=== PATIENT | male | born 1970 | race Two or more races ===

== ENCOUNTER 2017-08-14 10:26 | Inpatient (IN) | payer OTHER ==
[~2017-08-14] VITALS: Ht 193 cm; Wt 117.9 kg
[2017-08-14] MEDS ORDERED: CARDURA8 MG PO (11:41)
[2017-08-14] MEDS ORDERED: PROCARDIA XL90 MG PO (11:42)
[2017-08-14] MEDS ORDERED: AVALIDE 300-121 EACH PO (11:42)
[2017-08-14] MEDS ORDERED: SYNTHROID200 MCG PO (11:43)
[2017-08-14] MEDS ORDERED: CARVEDILOL6.25 MG PO (11:43)
[2017-08-14] MEDS ORDERED: ZANTAC300 MG PO (11:43)
[2017-08-14] MEDS ORDERED: ZOCOR40 MG PO (11:44)
[2017-08-22] MEDS ORDERED: DOCUSATE SODIU100 MG PO (12:54)
[2017-08-22] MEDS ORDERED: MS CONTIN30 M1 PO (12:54)
[2017-08-22] MEDS ORDERED: AMOX1TAB12 PO (12:54)
[2017-08-22] MEDS ORDERED: RESTORIL30 MG PO (12:54)
[2017-08-22] MEDS ORDERED: GABAPENTIN800 MG PO (12:54)
[2017-08-22] MEDS ORDERED: ACETAMINOPHEN-1 EAC2 PO (12:54)
== END 2017-08-22 13:34 | disposition home or self-care (01) | DRG 455 ==
LOC: SURH 08-21 04:30 → O/R 08-21 04:30 → SURH 08-21 10:00
PROVIDERS: Orthopaedic Surgery Orthopaedic Surgery of the Spine
PROC: 0SG0071 Fusion of Lumbar Vertebral Joint with Autologous Tissue Substitute, Posterior Approach, Posterior Column, Open Approach (ICD-10-PCS; 2017-08-21)
PROC: 0ST20ZZ Resection of Lumbar Vertebral Disc, Open Approach (ICD-10-PCS; 2017-08-21)
PROC: 0SG00AJ Fusion of Lumbar Vertebral Joint with Interbody Fusion Device, Posterior Approach, Anterior Column, Open Approach (ICD-10-PCS; 2017-08-21)
PROC: 07DS3ZZ Extraction of Vertebral Bone Marrow, Percutaneous Approach (ICD-10-PCS; 2017-08-21)
PROC: 0SG00A0 Fusion of Lumbar Vertebral Joint with Interbody Fusion Device, Anterior Approach, Anterior Column, Open Approach (ICD-10-PCS; principal; 2017-08-21 10:00)
DX: M47.26 Other spondylosis with radiculopathy, lumbar region (principal); M48.061 Spinal stenosis, lumbar region without neurogenic claudication; M51.16 Intervertebral disc disorders with radiculopathy, lumbar region; I10 Essential (primary) hypertension; E78.4 Other hyperlipidemia; E03.8 Other specified hypothyroidism; R73.03 Prediabetes

== ENCOUNTER 2020-10-11 07:40 | Day surgery (SDC) | payer OTHER ==
[~2020-10-11] VITALS: Ht 193 cm; Wt 90.7 kg
[~2020-10-11 07:40] MED LIST: ACETAMINOPHEN-1 EAC2 PO; AMOX1TAB12 PO; AVALIDE 300-121 EACH PO; CARDURA8 MG PO; CARVEDILOL6.25 MG PO; DOCUSATE SODIU100 MG PO; GABAPENTIN800 MG PO; MS CONTIN30 M1 PO; PROCARDIA XL90 MG PO; RESTORIL30 MG PO; SYNTHROID200 MCG PO; ZANTAC300 MG PO; ZOCOR40 MG PO
[2020-10-11] MEDS ORDERED: ZOLPIDEM TARTRA10 MG (15:04)
[2020-10-11] MEDS ORDERED: CLOTRIMAZOLE28 GM (15:04)
[2020-10-11] MEDS ORDERED: PANTOPRAZOLE SO40 MG (15:04)
[2020-10-11] MEDS ORDERED: ANTI-DIARRHEAL2 M1 (15:04)
[2020-10-11] MEDS ORDERED: CLONIDINE HCL0.1 MG (15:05)
[2020-10-11] MEDS ORDERED: MEDROLPACK PO (16:35)
[2020-10-11] MEDS ORDERED: COLACE100 MG PO (16:35)
[2020-10-11] MEDS ORDERED: PERCOCET 5-3251 EACH PO (16:35)
[2020-10-11] MEDS ORDERED: DIAZEPAM5 MG PO (16:35)
== END 2020-10-12 07:14 | disposition home or self-care (01) ==
LOC: CIR.AMB 07:40 → EDSTATUS 09:45 → SURH 09:45 → O/R 16:44 → SURH 16:44 → SURG 20:33 → CIR.AMB 10-12 07:14 → SURG 10-12 12:38
PROVIDERS: ATTEND Orthopaedic Surgery Orthopaedic Surgery of the Spine
DX: M50.01 Cervical disc disorder with myelopathy, high cervical region (principal); M50.021 Cervical disc disorder at C4-C5 level with myelopathy; M50.022 Cervical disc disorder at C5-C6 level with myelopathy; M50.023 Cervical disc disorder at C6-C7 level with myelopathy
CPT/HCPCS: 22551; 22552 ×3; 20930; 20939; 22846; 22853 ×4; C1776